=== PATIENT | female | born 1950 | race Caucasian/White ===

== ENCOUNTER 2019-02-18 08:00 | Emergency (ER) | payer MEDICARE ==
[2019-02-18] MEDS ORDERED: NS 0.9% 1000 ML** 1,000 ML IV ONE (08:13)
--- OUTSIDE RECORDS SUMMARY | 2019-02-18 08:13 | XMS REPORT | Summary of Care ---
:1950 Author Organization [facility] Address [address] [address] Care Team Providers Name Role Phone Miriam Yoon Primary Care Provider Reason for Visit Reason Comments Rash Pt c/o rash throughout body, small red bumps, states that they are itchy. Encounter Details Date Type Department Care Team Description 01/18/2019 Office Visit [facility] Zenaida Elizalde FNP Rash (Primary Dx) [address] [address] [place] [address] [phone] Allergies Active Allergy Reactions Severity Noted Date Comments Amoxicillin GI Reaction 07/26/2018 Diarrhea documented as of this encounter (statuses as of 01/18/2019) Medications Medication Sig Dispensed Refills Start Date End Date Status tizanidine Take 1 Tab by 120 Tab 1 06/01/2017 Active (ZANAFLEX) 4 MG Oral mouth EVERY SIX Tab HOURS NEEDED (back pain). lisinopril Take 1 Tab by 90 Tab 3 07/08/2018 Active (PRINIVIL, ZESTRIL) mouth DAILY. 10 MG Oral TabIndications: Benign hypertension naproxen (NAPROSYN) Take 1 Tab by 60 Tab 5 07/08/2018 Active 500 MG Oral Tab mouth TWICE DAILY. hydrocortisone Place 1 Appl 1 Tube 5 07/08/2018 Active (PROCTOSOL HC) 2.5 % per rectum FOUR Rectal Cream TIMES DAILY. lisinopril TAKE 1 TABLET 90 Tab 3 08/10/2018 Active (PRINIVIL, ZESTRIL) BY MOUTH EVERY 10 MG Oral Tab DAY Psyllium (METAMUCIL Take by mouth 0 Active PO) DAILY. Triclosan 0.3 % 1 Appl by Apply 1 Bottle 2 10/01/2018 Active Apply externally externally Liquid route THREE TIMES PER WEEK. Triamcinolone 1 Appl by Apply 30 g 1 10/01/2018 Active Acetonide 0.5 % externally Apply externally route TWICE Cream DAILY. Apply twice/ day benzonatate Take 1 Cap by 30 Cap 2 07/08/2018 Discontinued (TESSALON PERLJHONATAN) mouth THREE 9 100 MG Oral TIMES DAILY CapIndications: NEEDED for Cough cough. guaiFENesin-codeine Take 10 mL by 240 mL 0 07/26/2018 Discontinued (ROBITUSSIN AC) mouth EVERY 9 100-10 MG/5ML Oral FOUR HOURS SolutionIndications: NEEDED (cough). Persistent cough Max Daily Amount: 60 mL. documented as of this encounter (statuses as of 01/18/2019) Active Problems Problem Noted Date Benign hypertension 10/27/2016 History of tobacco use 07/08/2010 Overview: Quit smoking 2006. documented as of this encounter (statuses as of 01/18/2019) Social History Tobacco Use Types Packs/Day Years Used Date Former Smoker Smokeless Tobacco: Never Used Alcohol Use Drinks/Week oz/Week Comments Yes 7 Glasses of wine 7.0 ocassional glass of wine Sex Assigned at Date Recorded Not on file Job Start Date Occupation Industry Not on file Not on file Not on file Travel History Travel Start Travel End No recent travel history available. documented as of this encounter Last Filed Vital Signs Vital Sign Reading Time Taken Comments Blood Pressure 126/84 01/18/2019 10:45 AM EDT Pulse 76 01/18/2019 10:45 AM EDT Temperature 36.6 01/18/2019 10:45 AM EDT C (97.9 F) Respiratory Rate - - Oxygen Saturation - - Inhaled Oxygen Concentration - - Weight 52.6 kg (116 lb) 01/18/2019 10:45 AM EDT Height 157.5 cm (5' 2") 01/18/2019 10:45 AM EDT Body Mass Index 21.22 01/18/2019 10:45 AM EDT documented in this encounter Patient Instructions Patient InstructionsZenaida Elizalde FNP - 01/18/2019 10:40 AM EDTStop benadryl - use Zyrtec daily Cooler showers Can use topical benadryl cream every 3-4 hours for itching Follow up with Dr Holt as planning documented in this encounter Progress Notes Zenaida Elizalde FNP - 01/18/2019 10:40 AM EDT PATIENT: Moriah Pardo : 1950 DATE OF SERVICE: 01/18/2019 CHIEF COMPLAINT: Chief Complaint Patient presents with Rash Pt c/o rash throughout body, small red bumps, states that they are itchy. Subjective HISTORY OF PRESENT ILLNESS: Moriah Pardo is a 68-y.o. female. HPI Persistent itchy rash - used steroid cream with no relief. Has appointment with Derm next week Past Medical History: Diagnosis Date Postmenopausal Family History Problem Relation Age of Onset Cancer Mother lung cancer Current Outpatient Medications Medication Sig hydrocortisone (PROCTOSOL HC) 2.5 % Rectal Cream Place 1 Appl per rectum FOUR TIMES DAILY. lisinopril (PRINIVIL, ZESTRIL) 10 MG Oral Tab Take 1 Tab by mouth DAILY. lisinopril (PRINIVIL, ZESTRIL) 10 MG Oral Tab TAKE 1 TABLET BY MOUTH EVERY DAY naproxen (NAPROSYN) 500 MG Oral Tab Take 1 Tab by mouth TWICE DAILY. Psyllium (METAMUCIL PO) Take by mouth DAILY. tizanidine (ZANAFLEX) 4 MG Oral Tab Take 1 Tab by mouth EVERY SIX HOURS NEEDED (back pain). Triamcinolone Acetonide 0.5 % Apply externally Cream 1 Appl by Apply externally route TWICE DAILY. Apply twice/ day Triclosan 0.3 % Apply externally Liquid 1 Appl by Apply externally route THREE TIMES PER WEEK. No current facility-administered medications for this visit. Allergies Allergen Reactions Amoxicillin GI Reaction Diarrhea Social History Socioeconomic History Marital status: Spouse name: Not on file Number of children: Not on file Years of education: Not on file Highest education level: Not on file Occupational History Not on file Social Needs Financial resource strain: Not on file Food insecurity: Worry: Not on file Inability: Not on file Transportation needs: Medical: Not on file Non-medical: Not on file Tobacco Use Smoking status: Former Smoker Smokeless tobacco: Never Used Substance and Sexual Activity Alcohol use: Yes Alcohol/week: 7.0 standard drinks Types: 7 Glasses of wine per week Comment: ocassional glass of wine Drug use: No Sexual activity: Never Lifestyle Physical activity: Days per week: Not on file Minutes per session: Not on file Stress: Not on file Relationships Social connections: Talks on phone: Not on file Gets together: Not on file Attends yazidi service: Not on file Active member of club or organization: Not on file Attends meetings of clubs or organizations: Not on file Relationship status: Not on file Intimate partner violence: Fear of current or ex partner: Not on file Emotionally abused: Not on file Physically abused: Not on file Forced sexual activity: Not on file Other Topics Concern Back Care Not Asked Bike Helmet Not Asked Blood Transfusions Not Asked Caffeine Concern Not Asked Exercise Not Asked Hobby Hazards Not Asked International Travel Not Asked Service Not Asked Occupational Exposure Not Asked Seat Belt Not Asked Self-Exams Not Asked Sleep Concern Not Asked Special Diet Not Asked Stress Concern Not Asked Weight Concern Not Asked Social History Narrative 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 Over the last 2 weeks, have you been feeling down, depressed, anxious, or hopeless?: 0 Over the past 2 weeks, have you felt little interest or pleasure in doing things ?: 0 REVIEW OF SYSTEMS: Review of Systems Constitutional: Negative for chills and fever. Skin: Positive for itching and rash. Objective PHYSICAL EXAM: VITALS: BP 126/84 | Pulse 76 | Temp 97.9 F (36.6 C) | Ht 5' 2" ( 1.575 m) | Wt 116 lb (52.6 kg) | BMI 21.22 kg/m Body mass index is 21.22 kg/m. Physical Exam Constitutional: Vital signs are normal. She appears well-developed and well- nourished. HENT: Head: Normocephalic and atraumatic. Skin: Skin is warm and dry. Rash noted. Rash is not pustular and not vesicular. Vitals reviewed. ASSESSMENT / IMPRESSION: ICD-9-CM ICD-10-CM 1. Rash 782.1 R21 Plan Stop benadryl - use Zyrtec daily Cooler showers Can use topical benadryl cream every 3-4 hours for itching Follow up with Dr Holt as planning Author: HARRIET Chowdary 01/18/2019 11:09 documented in this encounter Plan of Treatment Health Maintenance Due Date Last Done Comments LIPID DISORDER SCREENING 1969 ZOSTER IMMUNIZATION SERIES (1 2001 of 2) FALL RISK ASSESSMENT 2016 OSTEOPOROSIS SCREENING 2016 PNEUMOCOCCAL 65+YRS (1 of 2 - 2016 PCV13) MEDICARE ANNUAL WELLNESS VISIT 10/27/2017 10/27/2016, 10/27/2016 INFLUENZA VACCINE (#1) 2019 MAMMOGRAM (SCREENING) 07/08/2019 07/08/2018, 10/27/2016 DEPRESSION SCREENING 01/19/2020 01/18/2019 COLONOSCOPY SCREENING 09/13/2028 09/13/2018, 10/27/2016 (Declined), 04/30/2007 HPV IMMUNIZATION SERIES Aged Out No longer eligible based on patient's age to complete this topic MENINGOCOCCAL VACCINE IMM Aged Out No longer eligible based on patient's age to complete this topic documented as of this encounter Goals Goal Patient Goal Associated Recent Patient-Stated? Author Type Problems Progress Blood Pressure Blood Pressure 126/84 No Karrie, < 150/90 (01/18/2019 HARIRET Pineda 10:45 AM EDT) Note: This is an individualized treatment (blood pressure) goal for Moriah Pardo: Displayed above (on the left) is your goal for blood pressure control. Your most recent blood pressure is also shown above, on the right. You should try to achieve blood pressures that are lower than your goal listed above (on the left). Take all prescribed medications as Self-management Miriam Mccormack FNP directed Note: This is an individualized self-management goal for Moriah Pardo: Please take all prescribed medications as directed. 1. Do not skip doses. If you cannot afford your medications, talk with your doctor. 2. Use a pill reminder system such as a pill box if needed. Your pharmacist can help you with this. 3. Contact your Pharmacy 5 days before your medication runs out. If you cannot take your medications for any reasons, talk with your doctor. 4. Please bring all of your medication bottles and inhalers (or a list of all your medications/inhalers) with you to every visit. Potential barriers to meeting all of your care plan goals will continue to be addressed on an ongoing basis. documented as of this encounter Results Not on filedocumented in this encounter Visit Diagnoses Diagnosis Rash - Primary Rash and other nonspecific skin eruption documented in this encounter [address] (Home) [address] [place], [place] (Work) [id number] documented as of this encounter
--- NOTE | 2019-02-18 08:15 | ED ---
GI/ HPI - HPI Summary HPI Summary: Patient is a 68-year-old female who presents to the emergency department for rectal bleeding that started around midnight tonight. Patient states she started with diarrhea that turned into bright red blood. Patient states she's had about 6 episodes this morning. She denies chest pain, shortness of breath, lightheadedness, dizziness. Past medical history of hypertension. Patient notes she's had issues with mild rectal bleeding in the past and had a colonoscopy this year that showed internal hemorrhoids and a small polyp that was removed. Patient states she also has a history of constipation and frequently uses MiraLAX. Notes some mild abdominal cramping. Otherwise denies fever, chills, vomiting. Patient denies any excessive use of NSAIDs, alcohol. Symptoms are moderate in severity. No current modifying factors. - History of Current Complaint Chief Complaint: EDGIBleed Time Seen by Provider: 02/18/19 08:12 Stated Complaint: BLOOD IN STOOL Hx Obtained From: Patient Pain Intensity: 2 - Allergy/Home Medications Allergies/Adverse Reactions: Allergies Allergy/AdvReac Type Severity Reaction Status Date / Time No Known Allergies Allergy Verified 02/18/19 08:08 PMH/Surg Hx/FS Hx/Imm Hx Previously Healthy: Yes Infectious Disease History: No Infectious Disease History: Denies: Traveled Outside the [place] in Last 30 Days - Family History Known Family History: Positive: Non-Contributory - Social History Occupation: Retired Lives: With Family Review of Systems Constitutional: Negative Negative: Fever, Chills Cardiovascular: Negative Negative: Chest Pain Respiratory: Negative Negative: Shortness Of Breath Positive: Abdominal Pain, Diarrhea, Other - blood per rectum Neurological: Negative All Other Systems Reviewed And Are Negative: Yes Physical Exam Triage Information Reviewed: Yes Vital Signs On Initial Exam: Initial Vitals Temp Pulse Resp BP Pulse Ox 98.3 F 100 16 132/90 96 02/18/19 08:03 02/18/19 08:03 02/18/19 08:03 02/18/19 08:03 02/18/19 08:03 Vital Signs Reviewed: Yes Appearance: Positive: Well-Appearing - Pt. sitting on bed in NAD> Skin: Positive: Warm, Dry Head/Face: Positive: Normal Head/Face Inspection Eyes: Positive: Normal, EOMI Neck: Positive: Supple Respiratory/Lung Sounds: Positive: Clear to Auscultation, Breath Sounds Present Cardiovascular: Positive: Normal, RRR Abdomen Description: Positive: Other: - Abd. is soft with mild tenderness to the lower abdomen. Rectal exam performed with Jason TRAN. Skin tags to external rectum. DE reveals internal hemorrhoids. No stool in vault. No blood noted. Musculoskeletal: Positive: Normal, Strength/ROM Intact Neurological: Positive: Normal, CN Intact II-III Psychiatric: Positive: Affect/Mood Appropriate Diagnostics - Vital Signs Vital Signs Temp Pulse Resp BP Pulse Ox 02/18/19 08:03 98.3 F 100 16 132/90 96 - Laboratory Result Diagrams: 02/18/19 08:25 02/18/19 08:25 Lab Statement: Any lab studies that have been ordered have been reviewed, and results considered in the medical decision making process. GIGU Course/Dx - Course Course Of Treatment: Patient presenting for reported bright red bowel movements. Patient is afebrile stable vital signs. IV established and labs obtained. CBC shows a stable H&H of 15.4 and 43. Labs are otherwise unremarkable. Negative occult stool. Patient observed in the ER for about 3 hours and has had no bowel movements or bleeding per rectum. Results discussed. We'll discharge patient home to follow up with GI. Given strict return precautions. Patient understands and agrees with plan. - Diagnoses Differential Diagnoses - Female: Hemorrhoids, Rectal Fissure Provider Diagnoses: Internal hemorrhoids Discharge ED - Sign-Out/Discharge Documenting (check all that apply): Patient Departure Patient Received Moderate/Deep Sedation with Procedure: No - Discharge Plan Condition: Improved Disposition: HOME Patient Education Materials: Hemorrhoids (ED), Rectal Bleeding (ED) Referrals: Aristides Leal DO [Doctor of Osteopathy] - Miriam Yoon NP [Primary Care Provider] - Additional Instructions: Schedule a follow up appointment with GI Return to ER if bleeding returns, you are dizzy/lightheaded, chest pain, shortness of breath or if concerned - Billing Disposition and Condition Condition: IMPROVED Disposition: Home
[2019-02-18 08:35] LABS: ABS Eosinophils 0.2 10^3/ul (0-0.6); ABS Lymphocytes 0.6 10^3/ul (1.0-4.8); ABS Monocytes 0.4 10^3/ul (0-0.8); Eosinophil % 3.2 %; Hematocrit 43 % (35-47); Hemoglobin 15.4 g/dL (12.0-16.0); Lymphocyte % 10.1 %; Mean Corpuscular HGB Conc 36 g/dL (31-36); Mean Corpuscular Hemoglobin 32 pg (27-31); Mean Corpuscular Volume 91 fL (80-97); Mean Platelet Volume 7.8 fL (7.4-10.4); Nucleated Red Blood Cells % 0.1; Platelet Count 232 10^3/uL (150-450); Red Blood Count 4.79 10^6 /uL (3.70-4.87); Red Cell Distribution Width 13 % (10-15); White Blood Count 6.2 10^3/uL (3.5-10.8)
[2019-02-18 08:43] LABS: Activated Partial Thrombo Time 30.2 seconds (26.0-38.0); INR 0.89 (0.82-1.09)
[2019-02-18 08:51] LABS: Albumin 4.6 g/dL (3.2-5.2); Albumin/Globulin Ratio 2.2 (1-3); Calcium 9.6 mg/dL (8.6-10.3); EGFR African American 80.7 (>60); EGFR Non-African American 66.7 (>60); Globulin 2.1 g/dL (2-4); Potassium 4.2 mmol/L (3.5-5.0); Total Bilirubin 1.3 mg/dL (0.2-1.0); Total Protein 6.7 g/dL (6.4-8.9)
[2019-02-18 10:57] VITALS: BP 137/85
== END 2019-02-18 10:57 | disposition home or self-care (01) ==
LOC: ED 08:00
DX: K64.8 Other hemorrhoids (principal); Z79.899 Other long term (current) drug therapy
CPT/HCPCS: 36415; 80053; 82272; 85025; 85610; 85730; 86850; 86900; 86901; 96360; 96361; 99282